=== PATIENT | male | born 1990 | race African-American/Black ===

== ENCOUNTER 2018-08-22 21:59 | Emergency (ER) | payer SELFPAY ==
[~2018-08-22] VITALS: Ht 185.4 cm; Wt 79.4 kg
--- NOTE | 2018-08-22 22:23 | NUR ---
ED Nurse Note: Patient reports cough, congestion and sore throat x 3 weeks. reports that sputum is green.
[2018-08-22 22:24] VITALS: BP 109/74
--- NOTE | 2018-08-22 23:11 | Emergency Room Report ---
History of Present Illness General Chief Complaint: Flu Like Symptoms Source: Patient Present Illness HPI Patient presents with complaints of sore throat Ongoing for the past several days Pain with swallowing denies any fevers or chills Denies any chest pain He does have history of smoking however has been smoking less with the pain Denies any vomiting or diarrhea denies any rash Denies any change in voice Allergies: Coded Allergies: No Known Allergies (Unverified , 08/22/18) Patient History Past Medical History: see triage record Pertinent Family History: none Reviewed Nursing Documentation: PMH: Agreed; PSxH: Agreed Nursing Documentation-PMH Past Medical History: No History, Except For Hx Gastrointestinal Problems: Yes - hernia Review of Systems All Other Systems: negative except mentioned in HPI Physical Exam Vital Signs Date Time Temp Pulse Resp B/P (MAP) Pulse Ox O2 Delivery O2 Flow Rate FiO2 08/22/18 22:15 98.6 80 16 109/74 98 Room Air Sp02 EP Interpretation: reviewed, normal General Appearance: well appearing, no apparent distress Head: normocephalic, atraumatic Eyes: bilateral eye PERRL, bilateral eye EOMI ENT: hearing grossly normal, normal voice, TMs + canals normal, uvula midline, pharyngeal erythema Neck: full range of motion, supple, no meningismus, no bony tend Respiratory: lungs clear, normal breath sounds, no rhonchi, no respiratory distress, no retraction, no accessory muscle use Cardiovascular #1: normal peripheral pulses, regular rate, rhythm, no edema, no gallop, no JVD, no murmur Gastrointestinal: normal bowel sounds, non tender, soft, no mass, no organomegaly, non-distended, no guarding, no hernia, no pulsatile mass, no rebound Musculoskeletal: normal inspection Neurologic: oriented x3, responsive, cheese specialist III-XII nml as tested, motor strength/ tone normal, sensory intact Psychiatric: mood/affect normal Skin: normal color, no rash, warm/dry, palpation normal Lymphatic: normal inspection, no adenopathy Medical Decision Making Diagnostic Impression: Primary Impression: Pharyngitis ER Course Given the patient's history and presentation multiple differentials are in consideration Including but not limited to retropharyngeal abscess, peritonsillar abscess patient's exam however is more consistent with likely pharyngitis Patient initiated on antibiotics And is stable for close outpatient follow-up Last Vital Signs Date Time Temp Pulse Resp B/P (MAP) Pulse Ox O2 Delivery O2 Flow Rate FiO2 08/22/18 22:24 98.6 80 16 109/74 98 Room Air Status: unchanged Disposition: HOME, SELF-CARE Condition: Stable Scripts No Active Prescriptions or Reported Meds Additional Instructions: Patient is provided with the discharge instructions notified to follow up with primary doctor in the next 2-3 days otherwise return to the er with any worsening symptoms. Please note that this report is being documented using UGO[employer] technology. This can lead to erroneous entry secondary to incorrect interpretation by the dictating instrument. Gillian Rousseau DO Aug 22, 2018 23:11
[2018-08-22] MEDS ORDERED: IBUPROFEN600 MG ORAL (23:26)
[2018-08-22] MEDS ORDERED: AMOXICILLIN500 MG ORAL (23:26)
[2018-08-22 23:35] VITALS: BP 109/74
--- NOTE | 2018-08-22 23:35 | NUR ---
ED Nurse Note: Patient cleared for discharge by ERMD, Patient verbalized understanding of discharge instructions. Patient is ambulatory with steady gait, A&Ox4, and has no s/s of acute distress. Patient departed with all personal belongings. ID band removed.
== END 2018-08-22 23:40 | disposition home or self-care (01) ==
LOC: EMR 22:57
DX: J02.9 Acute pharyngitis, unspecified (principal)
CPT/HCPCS: 99282